=== PATIENT | female | born 1945 | race Caucasian/White ===

== ENCOUNTER 2022-09-09 10:13 | Observation (INO) ==
--- NOTE | 2022-08-18 09:26 | PAT Medication Instructions ---
Medication Instructions Date of Service August 18, 2022 Home Medications ascorbic acid (vitamin C) 100 mg tablet (Vitamin C) 100 mg PO QAM cholecalciferol (vitamin D3) 50 mcg (2,000 unit) capsule (Vitamin D3) 50 mcg PO QAM lactobacillus combination no.4 3 billion cell capsule (Probiotic) 3,000 mmu cells PO QAM magnesium 200 mg tablet 200 mg PO QAM protein supplement 1 ea PO QAM STOP taking 2 weeks before surgery protein supplement 1 ea PO QAM DO NOT take the morning of surgery ascorbic acid (vitamin C) 100 mg tablet (Vitamin C) 100 mg PO QAM cholecalciferol (vitamin D3) 50 mcg (2,000 unit) capsule (Vitamin D3) 50 mcg PO QAM lactobacillus combination no.4 3 billion cell capsule (Probiotic) 3,000 mmu cells PO QAM magnesium 200 mg tablet 200 mg PO QAM Other Notes NOTHING TO EAT OR DRINK AFTER MIDNIGHT. If you have any questions please call us at [phone] or [phone] or [phone] or [phone]
--- NOTE | 2022-08-20 10:30 | Anesthesiology Consultation ---
Date of Service August 20, 2022 Assessment & Plan (1) Encounter for pre-operative examination: - right arm restriction due to lymphedema, s/p bilat mastectomy: pt states per lymphedema provider IVs and lab draws should be done as distally as possible/requests BP check in leg if possible. OR notified, pt advised she should also discuss with surgeon. Outpatient joint assessment: Patient is currently scheduled for inpatient pathway. If re-evaluated pending system levels during current pandemic/surgeon requests outpatient pathway, patient is acceptable candidate for outpatient joint program from anesthesia standpoint pending surgeon's office assessment of pt motivation/support/completion of same day joint program preop requirements. Chart Review Chart Review: Acceptable Risk for Surgery and Patient seen in Pre Admission Testing Teaching & Discussion Pre-Anesthesia Teaching/Discussion Notes: Instructed NPO after midnight before surgery, except medications with 15 cc of water. Medication instructions provided according to the PAT guidelines. History Surgery Operation Date: 09/09/22 08:15 Proposed Procedures p Left Reverse Total Shoulder Arthroplasty - Silvino Diop M.D. Height/Weight Height: 5 ft 4 in Weight: 51.2 kg Allergies Allergy/AdvReac Type Severity Reaction Status Date / Time meperidine AdvReac Mild NAUSEA Verified 08/17/22 15:21 clindamycin AdvReac Unknown Diarrhea Verified 08/17/22 15:21 Medications Home Medications Medication Instructions Recorded Confirmed Last Taken ascorbic acid (vitamin C) 100 mg 100 mg PO QAM 08/17/22 08/17/22 Unknown tablet (Vitamin C) cholecalciferol (vitamin D3) 50 50 mcg PO QAM 08/17/22 08/17/22 Unknown mcg (2,000 unit) capsule (Vitamin D3) lactobacillus combination no.4 3 3,000 mmu cells PO QAM 08/17/22 08/17/22 Unknown billion cell capsule (Probiotic) magnesium 200 mg tablet 200 mg PO QAM 08/17/22 08/17/22 Unknown protein supplement 1 ea PO QAM 08/17/22 08/17/22 Unknown L-Lysine 08/20/22 Unknown ferrous sulfate 08/20/22 Unknown vitamin [id number] factor SC 08/20/22 Unknown Past Medical History Medical History (Updated 08/20/22 @ 10:41 by Ewa Snell PA-C) Breast cancer 01/2020- CHEMO TX-- [facility] [place]- LAST VISIT 08/16/2022 History of blood transfusion with first childbirth d/t hemorrhage History of COVID-19 10/2020- COUGH , SORE THROAT, STOMACH ISSUES, LOSS OF TATSE AND SMELL, FATIGUE, NO HOSPITALZATION, NO CURRENT ISSUES 11/2021- COUGH, SORE THROAT- NO HOSPITALZATION, NO CURRENT ISSUES Hx of Clostridium difficile infection 2018 TREATED NO CURRENT ISSUES Limb alert care status right arm Lymphedema RIGHT ARM- RESTRICTED EXTREMITY Patient denies h/o stroke, seizures, heart attack, heart failure, DM, HTN, or blood clots. Exercise / Class Metabolic Activity II 4-5 Yardwork/Stairs/Walk up hill (denies CP or SOB with 1 FOS) Past Family History Family History Other No family history of adverse response to anesthesia Past Surgical History Surgical History History of back surgery L4-L5 History of bunionectomy B/L History of esophagogastroduodenoscopy (EGD) History of right hip replacement Hx of bilateral mastectomy Hx of cataract extraction b/l Hx of colonoscopy Hx of hysterectomy Hx of shoulder surgery x 2 --b/l Hx of tonsillectomy Past Anesthesia History No Hx of Anesthesia Complications (states has sore throat after intubations) and Other (sister with difficult airway) History of PONV No Hx of Motion Sickness and History of PONV (denies needing scop patch) Social History Smoking Status: Former smoker Do You Dip or Chew Tobacco: No Smoking End Date: QUIT Hx Alcohol Use: Yes alcohol intake frequency: a few times a week Hx Substance Use: No substance use type: does not use Review of Systems Snoring, denies witnessed apneas. Patient denies chest pain, shortness of breath, dyspnea on exertion, reflux, fever, chills, cough, wheezing, or palpitations. Physical Exam Vital Signs Vitals BP 115/75 P 61 SP02 96% on RA RESP 17 Physical Full cervical extension range of motion without pain TMD 3.5 finger breadths Mallampati Score 2 Dentition: intact, several caps/crowns; two implants-upper left side; denies chipped or loose teeth Lungs: normal respiratory effort. Clear throughout to auscultation, no adventitious breath sounds Cardiac: regular rate and rhythm, no murmurs noted Carotid arteries: negative bruit bilat Lab Results Anesthesia Preop Results Results Anesthesia Widget: PT 10.8 Seconds (9.0-12.0) 08/20/22 PTT 24.7 Seconds (21.0-31.0) 08/20/22 INR 1.0 (0.9-1.1) 08/20/22 HA1c 5.9 % (4.5-5.6) H 08/20/22 Urine Color Yellow 08/20/22 Urine Appearance Clear (Clear) 08/20/22 Urine pH 7.0 (4.5-7.5) 08/20/22 Urine Specific Dexter 1.007 (1.000-1.030) 08/20/22 Urine Protein Negative (Negative) 08/20/22 Urine Glucose (UA) Negative (Negative) 08/20/22 Urine Ketones Negative (Negative) 08/20/22 Urine Blood Negative (Negative) 08/20/22 Urine Nitrite Negative (Negative) 08/20/22 Urine Bilirubin Negative (Negative) 08/20/22 Urine Urobilinogen Negative (Negative) 08/20/22 Urine Leukocyte Esterase Trace (Negative) H 08/20/22 Urine WBC (Auto) 0 /hpf (0-5) 08/20/22 Urine RBC (Auto) 0-4 /hpf (0-4) 08/20/22 Urine Hyaline Casts (Auto) 0 /lpf (0-5) 08/20/22 Urine Epithelial Cells (Auto) 0-5 /lpf (0-5) 08/20/22 Urine Bacteria (Auto) Negative (Negative) 08/20/22 Blood Type A Negative 08/20/22 Antibody Screen NEGATIVE 08/20/22 Testing Laboratory Results 08/02/2022 WBC: 4 H/H: 13/39 PLATELETS: 192 SODIUM: 137 POTASSIUM: 4.3 CHLORIDE: 101 CO2: 25 BUN: 12 CREATININE: 0.7 GLUCOSE: 84 Electrocardiogram Date: 08/20/22 NSR, rate 60 bpm Chest X-Ray Date: 08/20/22 Cardiomediastinal and hilar silhouettes are within normal limits. Lungs are mildly hyperinflated. There is no pneumothorax, pleural effusion, airspace consolidation or overt pulmonary edema. Subcentimeter calcified granuloma of the lateral left midlung. Surgical clips of the right axilla. Degenerative changes of the shoulders and spine. IMPRESSION: No acute process. COVID-19 Risk Screen Screening Information COVID-19 Screen Date: 08/20/22 Exposure 21 Days Family/Household +COVID Last 21 Days: No Exposure 10 Days Any COVID Exposure Last 10 Days: No Symptoms Last 10 Days Experienced COVID Sx Last 10 Days: No + COVID 0-90 Days COVID + in Last 0-90 Days: No
--- NOTE | 2022-09-08 22:16 | History & Physical Report ---
Date of Service September 08, 2022 Assessment & Plan (1) Primary osteoarthritis, left shoulder: Plan: She has severe left shoulder joint arthritis. Based on her imaging this does look like primary glenohumeral joint arthritis. However, she has severe wear of the glenohumeral joint and diffuse thinning of her rotator cuff. We discussed anatomic versus reverse total shoulder arthroplasty in great detail today, including the biomechanics and rationale for each implant. I would be very concerned with doing an anatomic total shoulder with her diffuse rotator cuff thinning that she might tear her rotator cuff after anatomic total shoulder, thus requiring revision to a reverse. I do think that a reverse total shoulder would be a more reliable surgical treatment option for her. We discussed in detail the differences in the surgery, as well as postoperative recovery and rehabilitation. We very briefly discussed further conservative management with injections, but these have been ineffective for her in the past, and she would like to do something more definitive. After very extensive discussion, she elected to proceed with a left reverse total shoulder arthroplasty. She has healthy, but would prefer to for an overnight stay rather than outpatient surg villa. Risks, benefits, and alternatives of surgery were explained in detail. The surgical procedure, as well as postoperative recovery and rehabilitation, was also explained in detail. Risks include bleeding; infection; damage to surrounding structures such as nerves, blood vessels, and tendons that run in the area; persistent pain or stiffness; hardware failure; dislocation; brachial plexus palsy; blood clots; or need for further surgery. The patient understands all of this and wishes to proceed with surgery. Informed consent was obtained. History of Present Illness Chief Complaint: Left shoulder pain and weakness Primary Care Provider: Arsh Valdez MD Ms. Mckeon is a 76-year-old [id number] female who was referred from Dr. Phelan for further evaluation of left shoulder pain, stiffness, and weakness. This is been going on for many years. She has had previous surgery on that left shoulder. Previous operative report was reviewed. She had a left shoulder arthroscopy with subacromial decompression on 01/21/[address] Phelan. No mention of rotator cuff tear on the operative report. She did well after that surgery for few years, but that it had progressively worsening pain. She was treated with injections for shoulder joint arthritis for at least the past 5 years. She estimates that she has had about 8 injections in that left shoulder with decreasing efficacy over time. This pain is severely debilitating to her and frequently wakes her up. Allergies Allergy/AdvReac Type Severity Reaction Status Date / Time meperidine AdvReac Mild NAUSEA Verified 08/17/22 15:21 clindamycin AdvReac Unknown Diarrhea Verified 08/17/22 15:21 Home Medications Medication Instructions Recorded Confirmed Type ascorbic acid (vitamin C) 100 mg 100 mg PO QAM 08/17/22 08/17/22 History tablet (Vitamin C) cholecalciferol (vitamin D3) 50 50 mcg PO QAM 08/17/22 08/17/22 History mcg (2,000 unit) capsule (Vitamin D3) lactobacillus combination no.4 3 3,000 mmu cells PO QAM 08/17/22 08/17/22 History billion cell capsule (Probiotic) magnesium 200 mg tablet 200 mg PO QAM 08/17/22 08/17/22 History protein supplement 1 ea PO QAM 08/17/22 08/17/22 History L-Lysine 08/20/22 History ferrous sulfate 08/20/22 History vitamin X68-qqirggyut factor SC 08/20/22 History Past Med/Surg History Medical History (Updated 09/08/22 @ 22:15 by Silvino Diop M.D.) Breast cancer 01/2020- CHEMO [facility]-- [facility] [place]- LAST VISIT 08/16/2022 History of blood transfusion with first childbirth d/t hemorrhage History of COVID-19 10/2020- COUGH , SORE THROAT, STOMACH ISSUES, LOSS OF TATSE AND SMELL, FATIGUE, NO HOSPITALZATION, NO CURRENT ISSUES 11/2021- COUGH, SORE THROAT- NO HOSPITALZATION, NO CURRENT ISSUES Hx of Clostridium difficile infection 2018 TREATED NO CURRENT ISSUES Limb alert care status right arm Lymphedema RIGHT ARM- restricted extremity: per lymphedema provider: "recommended a leg be used for the purposes of intraoperative and immediate postoperative monitoring of blood pressure. An IV can be placed in the RUE if it is done so as cleanly/as aseptically as possible to limit any risk of infection. The patient is aware lymphedema increases their risk for infection and they should notify someone after the procedure if any signs or symptoms of cellulitis develops" Surgical History History of back surgery L4-L5 History of bunionectomy B/L History of esophagogastroduodenoscopy (EGD) History of right hip replacement Hx of bilateral mastectomy Hx of cataract extraction b/l Hx of colonoscopy Hx of hysterectomy Hx of shoulder surgery x 2 --b/l Hx of tonsillectomy Family History Other No family history of adverse response to anesthesia Social History Smoking Status: Former smoker Second Hand Exposure: No; Hx Alcohol Use: Yes Hx Substance Use: No Preferred Language: Syriac Communication Ability: Effective Registered Representative Required: No Beliefs That Will Affect Care: None Current Living Situation: Spouse Feels Safe at Home: Yes Assistive Devices: Glasses Physical Exam Physical Exam: Examination of the left shoulder shows fairly significant limitation in shoulder range of motion due to pain, with palpable crepitus during motion. Rotator cuff strength is globally weak. Results & Data ([facility]) Diagnostic Findings Previous x-rays of the left shoulder from June 2022 were reviewed. They show fairly severe glenohumeral joint arthritis with complete joint space loss. There is significant deformation of the humeral head that looks like it could be consistent with avascular necrosis with collapse. Left shoulder MRI from June 2022 was reviewed. There is severe lateral downsloping of the acromion. There is diffuse thinning and delamination of the rotator cuff, but I do not see any obvious full-thickness retracted rotator cuff tears. Relatively mild diffuse fatty atrophy of multiple rotator cuff muscle bellies.
[~2022-09-09 10:13] MED LIST: ACETAMINOPHEN 500 MG TAB PO SCH; BUPIVACAINE 0.5 % 5 MG/1 ML PF 10ML VIAL ONE; CeleBREX 200 MG CAP PO SCH; FAMOTIDINE 20 MG TAB PO SCH; GABAPENTIN 300 MG CAP PO SCH; LR 15ML/HR IV SCH; METOCLOPRAMIDE HCL 10 MG TABLET PO SCH; TRANEXAMIC ACID 1,000 MG **IV Pre-op IV SCH; ceFAZolin 2000MG 2,000 MG/15 ML SYR IV SCH; dexAMETHasone 4 MG TAB PO SCH
[2022-09-09] MEDS ORDERED: fentaNYL citrate 100 MCG/2 ML VIAL ONE (10:42)
[2022-09-09] MEDS ORDERED: MIDAZOLAM HCL 1 MG/ML 2ML VIAL ONE (10:42)
--- NOTE | 2022-09-09 11:11 | History & Physical Bridge Note ---
Date of Service September 09, 2022 History & Physical Bridge Note I have examined the patient, reviewed the History & Physical and in the interval since the performance of the History & Physical I have noted the following changes of clinical significance: no changes noted
[2022-09-09] MEDS ORDERED: ATROPINE SULFATE 0.1 MG/ML 10ML SYR IV PRN (11:17)
[2022-09-09] MEDS ORDERED: ePHEDrine sulfate 50 MG/ML AMP IV PRN (11:17)
[2022-09-09] MEDS ORDERED: fentaNYL citrate 100 MCG/2 ML VIAL IV PRN (11:17)
[2022-09-09] MEDS ORDERED: HYDROmorphone INJ 2 MG/ML SYR/VIAL IV PRN (11:17)
[2022-09-09] MEDS ORDERED: ONDANSETRON INJ 2 MG/ML 2 ML VIAL IV PRN ×2 (11:17→14:44)
[2022-09-09] MEDS ORDERED: ONDANSETRON INJ 2 MG/ML 2 ML VIAL ONE (13:29)
[2022-09-09] MEDS ORDERED: ROCURONIUM BROMIDE 10 MG/ML 5 ML VIAL IV ONE (13:29)
[2022-09-09] MEDS ORDERED: PROPOFOL IV EMULSION 10 MG/ML 20 ML VIAL IV ONE (13:29)
[2022-09-09] MEDS ORDERED: DEXAMETHASONE SOD INJ 4 MG/ML VIAL ONE (13:29)
[2022-09-09] MEDS ORDERED: LIDOCAINE 2% 2 ML VIAL/AMP(20MG/ML) INFIL ONE (13:29)
[2022-09-09] MEDS ORDERED: NEOSTIGMINE METHYLSULFATE 1 MG/ML 10ML VIAL ONE (13:29)
[2022-09-09] MEDS ORDERED: GLYCOPYRROLATE 0.2 MG/ML VIAL ONE (13:29)
[2022-09-09] MEDS ORDERED: ePHEDrine sulfate 50 MG/ML SYR ONE (13:38)
--- NOTE | 2022-09-09 13:41 | Operative Report ---
Post Operative Report Pre & Post Diagnosis Operation Date: 09/09/22 12:15 Pre-Op Diagnosis: Left shoulder osteoarthritis Post-Op Diagnosis: Left shoulder osteoarthritis I identified the patient and participated in the time-out.: Yes Procedure Operation Date: 09/09/22 12:15 Actual Procedures Left reverse total shoulder arthroplasty (66871) Open biceps tenodesis (71175) - Silvino Diop M.D. Surgeon Silvino Diop [employer] Day Worker Dre Sales PA-C Estimated Blood Loss 50 Findings Consistent with Post-Op Diagnosis Specimens None Drains None Anesthesia Type General Regional Complications none Disposition Disposition: Recovery Room Indications Ms. Mckeon is a 76-year-old female with persistent left shoulder pain and weakness. History, clinical exam, and imaging were consistent with the above diagnosis. Risks, benefits, and alternatives of surgery were explained in detail. The patient understood all this and wished to proceed. Description of Procedure Components Implanted: Tornier Reverse Total Shoulder implants Perform glenoid baseplate: 25mm, 15 degree full wedge with 6.5mm central screw and 5.0mm peripheral screws Glenosphere: 36mm standard Ascend Flex humeral stem: 2B Standard length (70mm) Humeral tray: 1.5 mm offset, +0mm thickness Polyethylene insert: 36mm, +6mm thickness Patient was identified in the preoperative holding area. Operative extremity was marked. Regional blockade was given by the Anesthesia Staff. Patient was then brought back to the operating room, and general anesthesia was induced without complication. Appropriate weight-based dose of Ancef was infused intravenously for antibiotic prophylaxis. The patient was then placed in the beachchair position. Left arm was then prepped and draped in a standard sterile fashion using Chlorhexidine prep. A standard deltopectoral incision was made through the skin and subcutaneous tissue. The cephalic vein was identified and retracted medially. Small branches to the deltoid were coagulated as necessary. The clavipectoral fascia was then incised and the subdeltoid space was opened. The rotator cuff was found to be deficient, and I therefore decided to perform a reverse total shoulder arthroplasty as planned preoperatively. The biceps tendon was identified within the bicipital groove and tenodesed at the superior border of the pectoralis tendon with #2 FiberWire suture. The biceps tendon was then divided proximal to the tenodesis site and the rotator interval was opened. The proximal portion of the biceps tendon was excised. The remaining subscapularis tendon was elevated subperiosteally off of the lesser tuberosity. The glenohumeral joint was then dislocated, and large osteophytes were debrided with a ronguer. The intramedullary canal of the humerus was then opened with a canal finder. The humeral head cut was then made in the appropriate inclination and version using the cutting guide. The humeral canal was then sequentially broached to the appropriate size. A protective cap was then placed on top of the humeral trial. I then turned my attention to the glenoid. The proximal stump of the biceps te ndon was excised, along with the labrum circumferentially around the glenoid. The Blueprint drill guide was then positioned on the glenoid, and the guidepin was then inserted. The 15 degree angled reamer was then inserted over the guidepin and an reamed to an appropriate depth. The central screw hole was drilled, and appropriate length 6.5mm central screw was selected. The baseplate was then implanted into place according to our preoperative Blueprint plan by tightening down the central screw. A peripheral 5mm nonlocking screw was placed postero-superiorly first for additional compression of the baseplate, and then additional locking 5 mm peripheral screws were placed to complete fixation of the baseplate. Glenosphere was then impacted and secured. A trial humeral tray and insert were placed on the trial humeral stem, and a trial reduction was carried out. Once I achieved acceptable joint stability and range of motion with the trial implants, the final humeral implants were assembled on the back table and then impacted into position. I then took the shoulder through full range of motion to ensure good stability and acceptable motion. Wound was then copiously irrigated with sterile saline. Deep fascia was closed with 0 V-lock suture. Subcutaneous tissue was closed with 2-0 V-lock, and skin was closed with 3-0 V-lock. Skin was then sealed with Dermabond. Sterile maru ssings were then applied with a waterproof silver-impregnated dressing, and the arm was placed into a sling. The patient was awakened from anesthesia and taken to the Post Anesthesia Care Unit in stable condition. There were no immediate complications from the procedure. I was present and scrubbed for the entire procedure, with the exception of final skin closure and dressing application. Due to the complex nature of the procedure, the entire surgery was performed with the operational assistance of Dre Sales PA-C. The clinical physician assistant, under direct supervision, was involved in the performance of all aspects of the surgical procedure including hemostasis, tissue incision and retraction, instrument management, patient positioning, and wound closure. I attest to the content of the Intraoperative Record and any orders documented therein. Any exceptions are noted below.
--- NOTE | 2022-09-09 14:36 | Anesthesiology Progress Note ---
Date of Service September 09, 2022 Anesthesia Post Procedure Vital Signs Vital Signs: Temp Pulse Resp BP Pulse Ox O2 Del Method O2 Flow Rate 09/09/22 14:25 97.5 F L 60 16 149/79 H 97 Room Air 09/09/22 14:15 64 16 143/74 H 100 Oxymask 5 09/09/22 14:05 61 16 148/75 H 100 Oxymask 5 09/09/22 13:55 96.8 F L 59 L 18 153/78 H 99 Oxymask 5 09/09/22 10:38 98.4 F 58 L 20 155/90 H 98 Room Air Transfer of Care Handoff Completed per policy Notes Mental Status: alert / awake / arousable and participated in evaluation Patient Amnestic to Procedure: Yes Nausea / Vomiting: adequately controlled Pain: adequately controlled Airway Patency, RR, SpO2: stable & adequate BP & HR: stable & adequate Hydration State: stable & adequate Anesthetic Complications: no major complications apparent and Pt Satisfied with anesthetic care
[2022-09-09] MEDS ORDERED: MAGNESIUM HYDROXIDE SUSP 30 ML UDC PO PRN (14:44)
[2022-09-09] MEDS ORDERED: oxyCODONE HCL IR 5 MG TAB (IMMEDIATE RELEASE) PO PRN (14:44)
[2022-09-09] MEDS ORDERED: bisacodyL 10 MG SUPP PR PRN (14:44)
[2022-09-09] MEDS ORDERED: METOCLOPRAMIDE HCL INJ 5 MG/ML 2 ML VIAL IV PRN (14:44)
[2022-09-09] MEDS ORDERED: SODIUM CHLORIDE 0.9% 1000ML 1,000 ML IV SCH (14:44)
[2022-09-09] MEDS ORDERED: NALOXONE HCL 0.4 MG/1 ML VIAL/CARP IV PRN (14:44)
--- NOTE | 2022-09-09 14:44 | XRay Report ---
XR shoulder LT min 2V routine HISTORY: 76 years-old Female Post shoulder surgery left shoulder arthroplasty COMPARISON: Chest radiograph 08/20/2022 TECHNIQUE: 2 views of the left shoulder FINDINGS: Reverse total joint arthroplasty demonstrates satisfactory alignment. No acute fracture or unexpected opaque foreign body. Expected postoperative soft tissue swelling with deep tissue air. The imaged aida ng cunningham appear clear. IMPRESSION: Reverse total joint arthroplasty with satisfactory alignment. ACT 112: Negative or not required by law. The above report was generated using voice recognition software. It may contain grammatical, syntax o r spelling errors. Electronically signed by: Donny Anglin M.D. 09/09/2022 2:43 PM
[2022-09-09] MEDS: ACETAMINOPHEN 500 MG TAB PO SCH ×2 (15:50→20:42)
[2022-09-09] MEDS: IBUPROFEN 600 MG TAB PO SCH ×2 (15:55→23:08)
[2022-09-09] MEDS: ceFAZolin 2000MG 2,000 MG/15 ML SYR IV SCH (20:41)
[2022-09-09] MEDS: DOCUSATE SODIUM 100 MG CAP PO SCH (20:42)
[2022-09-09] MEDS ORDERED: SENNA 8.6 MG TAB PO SCH (21:00)
[2022-09-10] MEDS: ACETAMINOPHEN 500 MG TAB PO SCH ×2 (02:56→08:07)
[2022-09-10] MEDS: ceFAZolin 2000MG 2,000 MG/15 ML SYR IV SCH (05:03)
[2022-09-10] MEDS: IBUPROFEN 600 MG TAB PO SCH ×2 (05:03→11:06)
--- NOTE | 2022-09-10 08:02 | Orthopedic Progress Note ---
Date of Service September 10, 2022 Assessment & Plan (1) Status post reverse arthroplasty of left shoulder: Plan: 76 yo female stable POD #1 s/p reverse left TSA 1. Med management 2. DVT prophylaxis- ASA, SCDs 3. PT/OT 4. D/C planning- home w/ OPPT Admission and Anticipated Discharge Date Admission Date: September 09, 2022 Subjective Pt resting in chair, pain controlled, block still working, no complaints Physical Exam Physical Exam: Silverlon dressing in place, hand/fingers still recovering from block, feel funny, lack of full ROM Results & Data ([facility]) Vital Signs (Past 12 Hours) Vital Signs Temp Pulse Resp BP Pulse Ox O2 Del Method 09/10/22 02:17 36.8 C 65 16 154/78 H 97 Room Air 09/09/22 23:00 36.7 C 71 16 146/71 H 97 Room Air
[2022-09-10] MEDS: DOCUSATE SODIUM 100 MG CAP PO SCH (08:06)
[2022-09-10 08:37] LABS: Basophils # (auto) 0.02 K/uL (0-0.2); Basophils % (auto) 0.3 %; Hematocrit (blood only) 34.5 % (34.1-44.9); Hemoglobin 11.6 g/dl (12.0-16.0); Immature Granulocytes # (auto) 0.03 K/uL (0.00-0.02); Immature Granulocytes % (auto) 0.5 %; Lymphocytes # (auto) 1.06 K/uL (1.2-3.4); Lymphocytes % (auto) 17.7 %; Mean Corpuscular Hemoglobin 31.3 pg (25.0-34.0); Mean Corpuscular Hgb Conc 33.6 g/dL (32.0-36.0); Mean Platelet Volume 9.4 fL (9.4-12.3); Monocytes # (auto) 0.82 K/uL (0.24-0.82); Monocytes % (auto) 13.7 %; Neutrophils # (auto) 4.07 K/uL (1.4-6.5); Neutrophils % (auto) 67.8 %; Platelet Count 184 K/uL (130-400); RDW Coefficient of Variation 13.1 % (11.5-14.5); RDW Standard Deviation 44.7 fL (36.4-46.3); Red Blood Count 3.71 M/uL (3.93-5.22)
[2022-09-10 08:58] LABS: BUN Creatinine Ratio 15.6 (10-20); Calcium 9.4 mg/dl (8.5-10.1); Creatinine Clr Calc Pharmacy 59.5 ml/min; Est GFR (African American) 101.2 ml/min; Est GFR (Non-African American) 87.3 ml/min; Potassium 3.5 mmol/L (3.5-5.1)
[2022-09-10] MEDS ORDERED: ASPIRIN 325 MG ECTAB PO SCH (09:00)
[2022-09-10] MEDS ORDERED: CHOLECALCIFEROL 1,000 UNITS 25 MCG TAB PO SCH (09:00)
[2022-09-10] MEDS ORDERED: NON-FORMULARY MEDICATION (Ascorbic Acid (Vitamin C) [Vitamin C] 100 mg Tablet) PO SCH (09:00)
[2022-09-10] MEDS ORDERED: MAGNESIUM OXIDE 400 MG TAB PO SCH (09:00)
[2022-09-10] MEDS ORDERED: MULTIVITAMIN TAB PO SCH (09:00)
--- NOTE | 2022-09-10 10:31 | Hospitalist Consultation ---
Date of Consultation September 10, 2022 Assessment & Plan (1) Status post reverse arthroplasty of left shoulder: Pt left before I could see her so consult not completed (2) Breast cancer: (3) Lymphedema: (4) Vitamin B12 deficiency: History of Present Illness Reason for Consultation: Postop management Requesting Physician: Dr. Diop Attending Physician: Silvino Diop History of Present Illness This pt is a 76 yo female with a h/o breast CA, lymphedema, B12 deficiency who is admitted after having a Left TSA and biceps tendonesis by Dr. Diop. Hospitalist service consulted for medical management. Unfortunately, the patient was discharged before I saw her even though I asked her to not be discharged prior to my seeing her. Allergies Allergy/AdvReac Type Severity Reaction Status Date / Time meperidine AdvReac Mild NAUSEA Verified 09/09/22 11:39 clindamycin AdvReac Unknown Diarrhea Verified 09/09/22 11:39 Home Medications Medication Instructions Recorded Confirmed Type ascorbic acid (vitamin C) 100 mg 100 mg PO QAM 08/17/22 09/09/22 History tablet (Vitamin C) cholecalciferol (vitamin D3) 50 50 mcg PO QAM 08/17/22 09/09/22 History mcg (2,000 unit) capsule (Vitamin D3) lactobacillus combination no.4 3 3,000 mmu cells PO QAM 08/17/22 09/09/22 History billion cell capsule (Probiotic) magnesium 200 mg tablet 200 mg PO QAM 08/17/22 09/09/22 History protein supplement 1 ea PO QAM 08/17/22 09/09/22 History L-Lysine 08/20/22 History ferrous sulfate 08/20/22 History vitamin [id number] factor [place] 08/20/22 History Patient History Medical History Breast cancer 01/2020- CHEMO [place]-- [facility]- LAST VISIT 08/16/2022 History of blood transfusion with first childbirth d/t hemorrhage History of COVID-19 10/2020- COUGH , SORE THROAT, STOMACH ISSUES, LOSS OF TATSE AND SMELL, FATIGUE, NO HOSPITALZATION, NO CURRENT ISSUES 11/2021- COUGH, SORE THROAT- NO HOSPITALZATION, NO CURRENT ISSUES Hx of Clostridium difficile infection 2018 TREATED NO CURRENT ISSUES Limb alert care status right arm Lymphedema RIGHT ARM- restricted extremity: per lymphedema provider: "recommended a leg be used for the purposes of intraoperative and immediate postoperative monitoring of blood pressure. An IV can be placed in the RUE if it is done so as cleanly/as aseptically as possible to limit any risk of infection. The patient is aware lymphedema increases their risk for infection and they should notify someone after the procedure if any signs or symptoms of ce llulitis develops" Vitamin B12 deficiency Surgical History History of back surgery L4-L5 History of bunionectomy B/L History of esophagogastroduodenoscopy (EGD) History of right hip replacement Hx of bilateral mastectomy Hx of cataract extraction b/l Hx of colonoscopy Hx of hysterectomy Hx of shoulder surgery x 2 --b/l Hx of tonsillectomy Family History Other No family history of adverse response to anesthesia Social History Smoking Status: Former smoker Smoking End Date: QUIT ; Second Hand Exposure: No; Do You Dip or Chew Tobacco: No; Tobacco Cessation Education Requested by Patient: No Hx Alcohol Use: Yes Hx Substance Use: No Preferred Language: Cymro Communication Ability: Effective 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 Beliefs That Will Affect Care: None Current Living Situation: Spouse Other Information That Helps Us Care for You: No Feels Safe at Home: Yes Safety Concerns: Feels Safe At This Time Assistive Devices: None Results & Data Results & Data ([facility]) Vital Signs (Past 12 Hours) Vital Signs Temp Pulse Pulse Resp BP Pulse Ox O2 Del Method 09/10/22 07:59 36.5 C 73 17 155/102 H 96 Room Air 09/10/22 02:17 36.8 C 65 16 154/78 H 97 Room Air 09/09/22 23:00 36.7 C 71 16 146/71 H 97 Room Air Laboratory Results 09/10/22 08:16 09/10/22 08:16 PG Care Time/CCT Total # of Minutes Spent Total Time Spent with Patient: Total time spent is greater than 50% in coordination of care (as documented) at patient's floor/unit and/or counseling patient: Coding Level of Care Code None Diagnoses Status post reverse arthroplasty of left shoulder Z96.612 Breast cancer C50.919 Lymphedema I89.0 Vitamin B12 deficiency E53.8
--- NOTE | 2022-09-10 13:02 | Discharge Summary ---
Date of Service September 10, 2022 Principal Diagnosis Left shoulder osteoarthritis Discharge Data Allergies Allergy/AdvReac Type Severity Reaction Status Date / Time meperidine AdvReac Mild NAUSEA Verified 09/09/22 11:39 clindamycin AdvReac Unknown Diarrhea Verified 09/09/22 11:39 Consultations 09/06/22 11:41 Consult Hospitalist Routine Procedures Performed Operation Date: 09/09/22 12:15 Actual Procedures p Left Reverse Total Shoulder Arthroplasty(Left) - Silvino Diop M.D. Ordered Studies 09/09/22 05:00 US - OR guided needle placemen Routine Hospital Course (1) Primary osteoarthritis, left shoulder: Patient underwent a left reverse total shoulder arthroplasty on the date of admission. Patient tolerated the procedure well and was transferred up to the general orthopedic surgery floor in stable condition. Perioperative antibiotic coverage was initiated, and continued for 24 hours postoperatively. DVT prophylaxis was initiated consisting of SCDs and aspirin 325 mg daily. Perioperative pain control regimen was transitioned to strictly oral pain medications by postoperative day 1. On postoperative day 1 the patient was doing very well. Pain was well controlled, and patient was mobilizing well with therapy. Patient was determined be safe and ready for discharge to home. Total Time Total Time Spent Total Time Spent (In Minutes): 15 Discharge Plan Discharge Items Patient Disposition: Home - Self-Care Reason For Visit: Osteoarthritis of Left Shoulder Discharge Diagnosis: Left shoulder osteoarthritis Activity: Per Instructions section Non-emergency contact: Surgeon Call non-emergency contact if: your pain is not controlled, your temperature is above 101.5, your wound has increased redness and your wound has increased drainage Follow-up/Referrals: Arsh Valdez MD [Outside Practitioners] - Silvino Diop M.D. [Physician] - Diet: Regular Addtl Attending Provider Instructions: Things to Watch Out For -Go to the Emergency Room if you have sudden onset of nausea, vomiting, chest pain, shortness of breath, or uncontrollable pain. -Call the clinic or go to the Emergency Room if you have a sudden increase in the amount of wound drainage or the drainage becomes thick, yellow or green, or foul-smelling. -For routine questions, call the clinic at [phone] during regular business hours (8am-5pm). For urgent issues after regular business hours, you may call the clinic to be connected to the on-call physician. Dressings -A special waterproof, silver-impregnated dressing was placed on your shoulder. Keep this dressing in place for 1 week after surgery. You may shower with the waterproof dressing in place, but do not soak the dressing in the bathtub or pool. -One week after surgery, you may remove the waterproof dressing. You may continue to shower, and let water run BRIEFLY over the incision, but do not soak the incision in the bathtub or pool for 2 weeks. You may also gently clean the incision with mild soap and water; pat the incision dry after cleaning-do not rub the incision. Apply a new dressing daily thereafter. Shoulder Exercises -Keep your operative shoulder in the sling for comfort, except as detailed below. -You should come out of the sling 4-5 times a day for passive pendulum exercises: lean over and swing your arm in a circular pattern. -You should also do active-assisted forward flexion exercises: use your opposite hand to lift your operative arm forward to 90 degrees. -Do not flex your elbow (curl motion) or supinate your forearm (rotating palm up) against resistance. -Do not use your arm to push yourself up out of bed or up from a seated position. Ice Pack -You may use an ice pack for pain relief. You should use it 20-30 minutes at a time. Place a towel between the ice pack and your skin to prevent frostbite. -You should use the ice pack fairly regularly for the first 1-2 weeks after surgery to help reduce pain and inflammation. -About 2 weeks after your surgery, you should start using heat to loosen up your shoulder prior to doing your stretching exercises, then use the cooling sleeve after your exercises are complete to reduce swelling and pain. Pain Medicines -Your prescriptions for pain medications have already been sent to the pharmacy on file at [facility]. -You have been prescribed an anti-inflammatory (Motrin/ibuprofen) and a non- narcotic pain medicine (Tylenol/acetaminophen). These are your primary pain m edications. Take them each every 6 hours as instructed. It is recommended that you stagger these medicines every 3 hours (i.e. take ibuprofen at 8:00 am, then acetaminophen at 11:00 am, then ibuprofen at 2:00 pm, etc) -DO NOT take any additional anti-inflammatories (Advil, Aleve/naproxen, Mobic/meloxicam, Celebrex) or any additional Tylenol/acetaminophen products with these prescribed medications. -You have also been prescribed an additional narcotic pain medication (oxycodone). Take this medicine ONLY for breakthrough pain not controlled by the ibuprofen and acetaminophen. -Do not drive or operate heavy machinery while taking the narcotic medication. -Common side effects of narcotic pain medicines include itching, nausea, constipation, and feeling "loopy". However, if you develop a rash or hives, stop taking the medicine and call the clinic. If you develop swelling in your throat or difficulty breathing, go to the Emergency Room or call 911 IMMEDIATELY. -You may take over the counter stool softeners if needed for constipation. Aspirin -Take a full strength (325mg) aspirin every day for 4 weeks (28 days) to prevent blood clots. -If you were taking a baby aspirin (81mg) prior to surgery, you may resume taking this 81mg dose after you complete the 28-day course of the 325mg strength dose; do not take the 325mg dose in addition to your 81mg dose. -Be aware that you will bruise easier while taking Aspirin; this is normal. However, if you develop a significantly large area of swelling after an injury, or have a cut that will not stop bleeding, call the clinic or go to the Emerg ency Room immediately. Pending Studies at Discharge: No Stand-Alone Forms: My [facility] Medications and DC Order Prescriptions: Continued Vitamin C 100 mg Tablet 100 mg PO QAM magnesium 200 mg Tablet 200 mg PO QAM protein supplement Granules 1 ea PO QAM Rx Instructions: twice a week cholecalciferol (vitamin D3) [Vitamin D3] 50 mcg (2,000 unit) Capsule 50 mcg PO QAM Probiotic 3 billion cell Capsule 3,000 mmu cells PO QAM Rx Instructions: administer with a meal L-Lysine ferrous sulfate vitamin Q66-gdjieseuy factor [place] Discharge Orders: Discharge Order (Routine); Ordered 09/10/22 Ordered By: Dre Sales Admission Data Admit Date/Time: 09/09/22 14:02 Attending Provider: Silvino Diop Admit Provider: Silvino Diop Primary Care Provider: Jossue Mccormick Other Providers: Chon BettencourtJayshree B. Other Interventions: Discharge Summary Assessment (RN) Last Done: 09/10/22 10:31
== END 2022-09-10 11:09 | disposition home or self-care (01) ==
LOC: ASU 10:13 → INTOOBSV 14:02 → 3E 14:02